=== PATIENT | female | born 1970 | race Caucasian/White ===

== ENCOUNTER → 2017-03-21 | Outpatient (CLI) | payer OTHER ==
[~2017-03-21] MED LIST: IOPAMIDOL (ISOVUE 370) 100 ML BTL IV ONE
== END ==
LOC: CIMAGING 09:03
PROVIDERS: ATTEND Surgery
CPT/HCPCS: 70498-PO; Q9967

== ENCOUNTER 2017-03-26 08:26 | Inpatient (IN) | payer OTHER ==
[2017-03-26] MEDS ORDERED: CLINDAMYCIN 900 MG/DEXTROSE 50 ML IV ONE (08:41)
[2017-03-26 09:09] LABS: % IMMATURE GRANULYOCYTES 0.3 % (0.0-1.1); ABSOLUTE IMMATURE GRANULOCYTES 0.03 10^3/uL (0.00-0.10); ADD DIFF? NO; ADD MORPH? NO; ADD SCAN? NO; ATYPICAL LYMPHOCYTE FLAG 0 (0-99); FRAGMENT RBC FLAG 0 (0-99); HEMATOCRIT 44.9 % (38.0-47.0); HEMOGLOBIN 15.5 g/dL (12.6-16.3); LEFT SHIFT FLG 0 (0-99); LIPEMIA HEMOLYSIS FLAG 90 (0-99); MEAN CELL HEMOGLOBIN 29.7 pg (27.9-34.1); MEAN CELL HEMOGLOBIN CONCENTR. 34.5 g/dL (32.4-36.7); MEAN PLATELET VOLUME 11.7 fL (8.7-11.7); PLATELET CLUMPS FLAG 0 (0-99); PLATELET COUNT 247 10^3/uL (150-400); RED BLOOD CELL COUNT 5.22 10^6/uL (4.18-5.33); RED CELL DISTRIBUTION WIDTH 12.8 % (11.5-15.2)
[2017-03-26] MEDS ORDERED: BUPIVACAINE 0.5% 30 ML SDV ONE (09:12)
--- NOTE | 2017-03-26 09:55 | PDHPUP ---
History & Physical Update H&P update statement: This history and physical update is based on an assessment of the patient which was completed after admission or registration (within 24 hours), but prior to the surgery/procedure. H&P update: H&P reviewed & patient examined, no change in patient's condition since H&P completed
[2017-03-26] MEDS ORDERED: fentaNYL 100 MCG/2 ML INJ ONE ×2 (10:05→11:02)
[2017-03-26] MEDS ORDERED: PROPOFOL/EMULSION 500 MG/50 ML BOTTLE IV ONE (10:06)
[2017-03-26] MEDS ORDERED: MIDAZOLAM 2 MG/2 ML VIAL ONE ×2 (10:06→10:54)
[2017-03-26 10:38] LABS: ANION GAP 15 mEq/L (8-16); CALCIUM 9.9 mg/dL (8.5-10.4); CARBON DIOXIDE 21 mEq/l (22-31); CHLORIDE 106 mEq/L (97-110); CREATININE 0.6 mg/dL (0.6-1.0); GLOMERULAR FILTRATION RATE > 60; GLUCOSE 114 mg/dL (70-100); POTASSIUM 4.6 mEq/L (3.5-5.2); SODIUM 142 mEq/L (134-144)
[2017-03-26] MEDS ORDERED: ONDANSETRON 4 MG/2 ML VIAL ONE (10:53)
[2017-03-26] MEDS ORDERED: LIDOCAINE 2% 5 ML SDV ONE (10:53)
[2017-03-26] MEDS ORDERED: SUGAMMADEX SODIUM 200 MG/2 ML VIAL IVP ONE (10:53)
[2017-03-26] MEDS ORDERED: RANITIDINE 50 MG/2 ML VIAL ONE (10:53)
[2017-03-26] MEDS ORDERED: METOCLOPRAMIDE 10 MG/2 ML VIAL ONE (10:53)
[2017-03-26] MEDS ORDERED: ROCURONIUM 50 MG/5 ML VIAL ONE (10:53)
[2017-03-26] MEDS ORDERED: DEXAMETHASONE 4 MG/ML VIAL ONE (10:53)
--- NOTE | 2017-03-26 11:06 | PDANEPAE ---
ANE Past Medical History - Cardiovascular History Hx Hypertension: No Hx Arrhythmias: No Hx Coronary Artery / Peripheral Vascular Disease: No Hx CHF / Valvular Disease: No Hx Palpitations: No Cardiovascular History Comment: CARDIAC STENT. [place] 02/2015. CP - OCCAS - Pulmonary History Hx COPD: No Hx Asthma/Reactive Airway Disease: No Hx Recent Upper Respiratory Infection: No Hx Oxygen in Use at Home: No Hx Sleep Apnea: No - Neurologic History Hx Cerebrovascular Accident: No Hx Seizures: No Hx Dementia: No Neurologic History Comment: PAST MIGRAINES - Endocrine History Hx Diabetes: No - Renal History Hx Renal Disorders: No - Liver History Hx Hepatic Disorders: No - Neurological & Psychiatric Hx Hx Neurological and Psychiatric Disorders: No - Cancer History Hx Cancer: No - Congenital Disorder History Hx Congenital Disorders: No - GI History Hx Gastrointestinal Disorders: No - Other Health History Other Health History: ESOPHILLIAC fASCIITIS - MIMICS SCLERODERMA - Chronic Pain History Chronic Pain: Yes (PAIN W/ESOPHILLIAC FASCIITIS) - Surgical History Prior Surgeries: ANGIOGRAPHY W/ STENTING X1. APPENDECTOMY. HYSTERECTOMY ANE Review of Systems - Exercise capacity METS (RN): 4 METS ANE Patient History - Allergies Allergies/Adverse Reactions: amoxicillin Allergy (Verified 03/22/17 11:40) hives/itchy - Home Medications Home Medications: Amitriptyline HCl 75 mg PO HS 03/22/17 [Last Taken Unknown] Aspirin [Aspirin 81mg (*)] 81 mg PO DAILY 03/22/17 [Last Taken Unknown] Carvedilol [Coreg (*)] 0.5 tab PO BID 03/22/17 [Last Taken 03/26/17 06:40] Clarithromycin [Biaxin (*)] 500 mg PO BID 03/22/17 [Last Taken Unknown] Clopidogrel Bisulfate [Plavix (*)] 75 mg PO DAILY 03/22/17 [Last Taken Unknown] oxyCODONE HCL/ACETAMINOPHEN [Percocet 7.5-325 mg Tablet] 1 each PO TID 03/22/17 [Last Taken 03/26/17 08:00] - NPO status NPO Since - Liquids (Date): 03/25/17 NPO Since - Liquids (Time): 20:30 NPO Since - Solids (Date): 03/25/17 NPO Since - Solids (Time): 21:00 - Smoking Hx Smoking Status: Current some day smoker - Family Anes Hx Family Hx Anesthesia Complications: NEG ANE Labs/Vital Signs - Labs Result Diagrams: 03/26/17 09:00 03/26/17 10:11 - Vital Signs Blood Pressure: 134/63 Heart Rate: 83 Respiratory Rate: 16 O2 Sat (%): 94 Height: 163.83 cm Weight: 61.235 kg ANE Physical Exam - Airway Neck exam: FROM Mallampati Score: Class 1 Mouth exam: poor dentition, dentures - Pulmonary Pulmonary: no respiratory distress, no rales or rhonchi, clear to auscultation, reduced air movement - Cardiovascular Cardiovascular: regular rate and rhythym, no murmur, rub, or gallop - ASA Status ASA Status: IV ANE Anesthesia Plan Anesthesia Plan: general endotracheal anesthesia Lines/Monitors: arterial line
[2017-03-26] MEDS ORDERED: PHENYLEPHRINE HCL 100 MCG/ML SYR ONE (11:18)
[2017-03-26] MEDS ORDERED: HEPARIN 10,000 UNIT/10 ML MDV ONE (11:18)
[2017-03-26] MEDS ORDERED: epHEDrine SULFATE 10 MG/ML SYR ONE (11:18)
[2017-03-26] MEDS ORDERED: fentaNYL 100 MCG/2 ML INJ IVP PRN (11:27)
[2017-03-26] MEDS ORDERED: METOCLOPRAMIDE 10 MG/2 ML VIAL IVP PRN (11:27)
[2017-03-26] MEDS ORDERED: DEXAMETHASONE 4 MG/ML VIAL IVP PRN (11:27)
[2017-03-26] MEDS ORDERED: LR 500 ML IV PRN (11:27)
[2017-03-26] MEDS ORDERED: NALOXONE HCL 0.4 MG/ML INJ IVP PRN (11:27)
[2017-03-26] MEDS ORDERED: PROMETHAZINE HCL 25 MG/ML INJ IVP PRN (11:27)
[2017-03-26] MEDS ORDERED: ONDANSETRON 4 MG/2 ML VIAL IVP PRN ×2 (11:27→12:00)
[2017-03-26] MEDS ORDERED: LABETALOL HCL 50 MG/10 ML SYR IVP PRN (11:27)
[2017-03-26] MEDS ORDERED: PROTAMINE SULFATE 50 MG/5 ML VIAL IVP ONE (11:35)
[2017-03-26] MEDS ORDERED: LABETALOL HCL 50 MG/10 ML SYR ONE (11:36)
[2017-03-26] MEDS ORDERED: HYDROmorphONE/DILAUDID 1 MG/ML SYR IVP PRN (12:00)
--- NOTE | 2017-03-26 12:00 | POSTOPPROG ---
Post Op Note Date of Operation: 03/26/17 Surgeon: Justin Eastman Cellular Biologist: Susie Jeffries Anesthesiologist: Yusra Mathis Anesthesia: GET(General Endotracheal) Pre-op Diagnosis: R carotid stenosis, R cervical LN biopsy Post-op Diagnosis: same Procedure: R CEA c patch closure and EEG monitoring Findings: small vessels with tight focal plaque Inf/Abcess present in the surg proc area at time of surgery?: No EBL: 50-100 Complications: none Specimen(s): plaque and LN to pathology
[2017-03-26] MEDS ORDERED: ENALAPRILAT DIHYDRATE 1.25 MG/ML VIAL IVP PRN (12:03)
--- NOTE | 2017-03-26 13:09 | POSTANESTH ---
Post Anesthetic Evaluation Cardiovascular Status: Normal, Stable Respiratory Status: Normal, Stable Level of Consciousness/Mental Status: Can Participate in Eval Pain Control: Adequate, Prn Tx Ordered Nausea/Vomiting Control: Adequate, Prn Tx Ordered Complications Possibly Related to Anesthesia: None Noted
[2017-03-26] MEDS: OXYCODONE/APAP 5/325 TAB PO PRN ×2 (14:50→20:10)
[2017-03-26] MEDS: D5W 1/2 NS 1,000 ML IV SCH ×2 (18:04→23:12)
[2017-03-26] MEDS ORDERED: AMITRIPTYLINE HCL 25 MG TAB PO SCH (21:00)
[2017-03-26] MEDS ORDERED: AMITRIPTYLINE HCL 75 MG PO SCH (21:00)
[2017-03-26] MEDS: CARVEDILOL 3.125 MG TAB PO SCH (21:13)
[2017-03-26] MEDS: CLARITHROMYCIN 500 MG TAB PO SCH (21:13)
[2017-03-27] MEDS: OXYCODONE/APAP 5/325 TAB PO PRN ×2 (02:02→07:09)
--- NOTE | 2017-03-27 03:09 | GCON ---
[f rep st] CONSULTATION RESTAURANT RECRUITER CONSULTATION The patient was examined postoperatively after receiving a right carotid endarterectomy. The patien jesús is a very pleasant 46-year-old white female with a past medical history of eosinophilic fasciitis. She was examined after receiving a right carotid endarterectomy. I discussed with the patient, ruth estrada states overall she is doing quite well. Her neck pain is tolerable. She denies any chest pain, p leuritic-type chest pain or angina equivalent. No fever, no night sweats. No cough or production o f sputum. She denies any dyspnea. Overall, she is feeling quite well. PAST MEDICAL HISTORY: Significant for eosinophilic fasciitis. ALLERGIES: Amoxicillin. SOCIAL HISTORY: Previous smoker, quit recently. No significant alcohol use. She is , has e xcellent family support. She has lived in [place] most of her life. CURRENT MEDICATIONS: Include Elavil, aspirin, Coreg, Biaxin, clindamycin, clopidogrel, enalapril, e noxaparin, hydromorphone, ondansetron. PHYSICAL EXAM: VITAL SIGNS: Blood pressure 99/55, pulse 71, respirations 20, temperature 36.6, oxy gen saturation 94% on room air. GENERAL: She is a well-developed, well-nourished, 46-year-old whit e female who is resting comfortably in no acute distress. HEENT: Eyes are PERRLA, EOMI. Throat sh ows no erythema or tonsillar hypertrophy. NECK: Has a bandage on the right side. HEART: Regular rate and rhythm without murmurs, rubs, gallops. LUNGS: Clear to auscultation without wheeze or rho nchi. ABDOMEN: Soft, nontender. Bowel sounds are present in all 4 quadrants. EXTREMITIES: No cl ubbing, cyanosis, or edema. LABORATORIES: White count 11, hemoglobin 15, hematocrit 44, platelet count is 247. Sodium 142, pot assium 4.6, chloride 106, CO2 is 21, BUN is 9, creatinine 0.6, glucose is 114. IMPRESSION: 1. Status post carotid endarterectomy. 2. History of eosinophilic fasciitis. RECOMMENDATIONS: 1. Adequate pain control. 2. DVT and PE prophylaxis. 3. Stress ulcer prophylaxis. 4. Adequate nutrition. 5. Anticipate patient to be discharged home soon. /[id number]/MODL
[2017-03-27 06:11] LABS: HEMATOCRIT 36.8 % (38.0-47.0); HEMOGLOBIN 12.3 g/dL (12.6-16.3)
[2017-03-27 06:27] LABS: ANION GAP 9 mEq/L (8-16); CALCIUM 9.2 mg/dL (8.5-10.4); CARBON DIOXIDE 21 mEq/l (22-31); CHLORIDE 110 mEq/L (97-110); CREATININE 0.6 mg/dL (0.6-1.0); GLOMERULAR FILTRATION RATE > 60; GLUCOSE 217 mg/dL (70-100); SODIUM 140 mEq/L (134-144)
--- NOTE | 2017-03-27 06:30 | GOP ---
[f rep st] OPERATIVE REPORT DATE OF OPERATION: 03/26/2017 SURGEON: Justin Eastman MD COMPLAINT INSPECTOR: Susie Jeffries, PAC ANESTHESIA: General endotracheal anesthesia. ANESTHESIOLOGIST: Dr. Mathis. PREOPERATIVE DIAGNOSIS: Critical right carotid stenosis. POSTOPERATIVE DIAGNOSIS: Critical right carotid stenosis. PROCEDURE PERFORMED: 1. Right carotid endarterectomy with EEG monitoring. 2. Cervical node biopsy. FINDINGS: The patient was found to have a very tight but short 1 cm stenosis at the origin of her r ight internal carotid artery. She had adequate backflow and no EEG changes during the procedure, an d she awoke neurologically intact. DESCRIPTION OF PROCEDURE: Patient was taken to the operating room, where she received satisfactory general endotracheal anesthesia by Dr. Mathis. She had been systemically heparinized prior to induc tion of anesthesia. She was placed in supine position, prepped and draped in usual sterile fashion. An incision was made along the anterior border of the sternocleidomastoid muscle and dissection ca rried down through the platysma and subcutaneous tissue and then through the cervical fascia. The f acial vein was doubly ligated and divided, exposing the carotid bifurcation, which was then dissecte d free. Common carotid, internal carotid, and external carotid arteries were all encircled with ves emily loops, as was the inferior thyroid artery. She also had quite small vessels. After adequate co ntrol was achieved additional heparin was given, and after adequate circulation time the vessels wer e crossclamped with the vessel loops. Arteriotomy was made in the common carotid artery and extende d up through the tight origin of the internal carotid into more normal internal carotid artery. Goo d backflow was present. We elected not to shunt this since the procedure was quite quick. Judiciou s endarterectomy was then done, freeing the plaque at the origin of the internal carotid artery. A good feathered end was obtained; however, the end was tacked down also with a 7-0 Prolene suture. A ll debris was removed through the vessel and all vessels were flushed. A Dacron patch was then plac ed on the artery and secured in place with a Hemashield 7 suture. Flow was first established throug h the external carotid and then through the internal carotid artery. The suture line was repaired i n 1 place with an additional suture, and the suture line was otherwise hemostatic. Heparin was then reversed with protamine and the wound was sprayed with some topical thrombin. Hemostasis appeared to be adequate despite the patient's Plavix and aspirin. Cervical fascia was closed with a running 3-0 Vicryl suture. Platysma and subcu were closed with running 3-0 Vicryl suture and the skin with 4-0 Monocryl subcuticular stitch. A large cervical node with bifurcation was dissected free and removed and sent with the pathology. It appeared to be relatively benign looking. Wound was dressed. She tolerated the procedure well. She awoke neurologically intact and was taken to the recovery room in good condition. There were n o complications. /[id number]/MODL
[2017-03-27 08:09] VITALS: TEMP 98.2
[2017-03-27] MEDS: CARVEDILOL 3.125 MG TAB PO SCH (08:17)
[2017-03-27] MEDS: CLARITHROMYCIN 500 MG TAB PO SCH (08:18)
[2017-03-27] MEDS ORDERED: ASPIRIN 81 MG CHEWABLE TAB PO SCH (09:00)
[2017-03-27] MEDS ORDERED: CLOPIDOGREL BISULFATE 75 MG TAB PO SCH (09:00)
--- NOTE | 2017-03-27 09:19 | PDINTPN ---
Admission Liaison Progress Note Assessment/Plan: Assessment: * Status post carotid endarterectomy * Pain tolerable * Respiratory-stable * History of eosinophilic fasciitis Plan: Likely home today Subjective: Resting comfortably. Pain is tolerable. Denies any dyspnea. Good appetite Objective: Vital Signs Temp Pulse Resp BP Pulse Ox 36.8 C 92 19 100/57 L 90 L 03/27/17 08:00 03/27/17 08:00 03/27/17 08:00 03/27/17 08:00 03/27/17 08:00 Laboratory Results 03/27/17 06:01 03/27/17 06:01 03/26/17 03/27/17 03/28/17 05:59 05:59 05:59 Intake Total 2923 Output Total 250 Balance 2673 Physical Exam - Physical Exam General Appearance: alert, no apparent distress EENT: PERRL/EOMI, normal ENT inspection Neck: full range of motion, other (Bandaged), No non-tender Respiratory: chest non-tender, lungs clear, normal breath sounds Cardiac/Chest: normal peripheral pulses, regular rate, rhythm Peripheral Pulses: 2+: carotid (R), carotid (L), femoral (R), femoral (L), dorsalis-pedis (R), dorsalis-pedis (L) Abdomen: normal bowel sounds, non-tender, soft Pelvic Exam: deferred Rectal: deferred Skin: normal color, warm/dry Extremities: normal range of motion, non-tender, normal inspection, normal capillary refill ICD10 Worksheet Patient Problems: Problems Problem Status Onset Carotid artery disease Acute - ICD10 Problem Qualifiers (1) Carotid artery disease Qualifiers: Laterality: L
--- NOTE | 2017-03-27 09:22 | SOAPPROG ---
SOAP Progress Note Assessment/Plan: Assessment/Plan: 46 Y F s/p R CEA. POD#1. BP stable. Neuro exam intact. Pain controlled. Doing well. D/c to home with early outpatient f/u. Limitations discussed. Will also need L CEA eventually. Resume plavix today. Rx: percocet. S: pain controlled. tolerating diet. no complaints. O: alert, nad inc cdi, min swelling ctab rrr abd soft neuro grossly intact. 03/27/17 09:20 Objective: Vital Signs Temp Pulse Resp BP Pulse Ox 36.8 C 92 19 100/57 L 90 L 03/27/17 08:00 03/27/17 08:00 03/27/17 08:00 03/27/17 08:00 03/27/17 08:00 Laboratory Results 03/27/17 06:01 03/27/17 06:01 03/26/17 03/27/17 03/28/17 05:59 05:59 05:59 Intake Total 4323 Output Total 250 Balance 2673 ICD10 Worksheet Patient Problems: Problems Problem Status Onset Carotid artery disease Acute
[2017-03-27 09:39] VITALS: BP 102/67; PULSE 94; RESP 14; O2SAT 92
[2017-03-28] MEDS ORDERED: ENOXAPARIN 40 MG/0.4 ML SYR SC SCH (09:00)
== END 2017-03-27 09:59 | disposition home or self-care (01) | DRG 39 ==
LOC: F3N 08:26 → F2N 13:13
PROVIDERS: ADMIT Surgery; ATTEND Surgery
PROC: 03CK0ZZ Extirpation of Matter from Right Internal Carotid Artery, Open Approach (ICD-10-PCS; principal; 2017-03-26 11:00)
PROC: 07B10ZX Excision of Right Neck Lymphatic, Open Approach, Diagnostic (ICD-10-PCS; principal; 2017-03-26 11:00)
DX: I65.23 Occlusion and stenosis of bilateral carotid arteries (principal); I25.2 Old myocardial infarction; Z95.5 Presence of coronary angioplasty implant and graft; Z87.891 Personal history of nicotine dependence
CPT/HCPCS: C1768; J1100; J1644; J2250; J2370; J2405; J2704; J2720; J2765; J2780; J3010

== ENCOUNTER 2017-04-16 09:13 | Inpatient (IN) | payer OTHER ==
--- NOTE | 2017-04-15 22:22 | GHP ---
[f rep st] PREOP HISTORY AND PHYSICAL DATE OF ADMISSION: 04/16/2017 HISTORY OF PRESENT ILLNESS: The patient is a 46-year-old female, who was initially found to have bi lateral carotid bruits. This prompted an ultrasound which showed critical carotid stenoses of both sides. Since then, she had a neck CT angiogram which showed moderate to severe bilateral stenosis o f the origin of both internal carotid arteries measuring 65%-75%. Upon reviewing images, it appeare d that the right side was slightly worse than the left and so she underwent a right carotid endarter ectomy on March 26, 2017. The procedure was uncomplicated and her postoperative course has been une ventful. She now presents for carotid artery endarterectomy of the left side. She denies any strok e-like symptoms. Risks and options have been discussed including, but not limited to, bleeding, inf ection, injury to a nerve, damage to surrounding structures, stroke and other problems, and she requ ests to proceed. PAST MEDICAL HISTORY: Includes myocardial infarction in February of 2015 with coronary stents, eosinoph ilic fasciitis, possible scleroderma. PAST SURGICAL HISTORY: Right carotid endarterectomy as described above. MEDICATIONS: Include oxycodone, omeprazole, Plavix, carvedilol, aspirin, amitriptyline. ALLERGIES: Amoxicillin results in hives and itchiness. SOCIAL HISTORY: Patient recently quit smoking. REVIEW OF SYSTEMS: Please see HPI. PHYSICAL EXAMINATION: GENERAL: Reveals a 46-year-old female, alert and oriented x3 and in no acute distress. HEENT: Well-healed right neck incision. Positive for left-sided bruit. Pupils equal a nd round. Tongue midline. No scleral icterus. CHEST: Clear to auscultation bilaterally. CARDIAC : Regular rate and rhythm. ABDOMEN: Soft, nontender. EXTREMITIES: Warm and dry. NEURO: Grossl y intact. IMPRESSIONS: A 46-year-old female with a cardiac history, status post right carotid endarterectomy, now still with critical left side carotid stenosis. PLAN: Plan is to proceed with a left carotid endarterectomy. She will continue her Plavix. Again risks and options have been discussed. She requests to proceed. /[id number]/MODL
[2017-04-16] MEDS ORDERED: ceFAZolin 2 GM/DEXTROSE 100 ML IV ONE (09:32)
[2017-04-16] MEDS ORDERED: LR 1,000 ML IV ONE (09:33)
[2017-04-16] MEDS ORDERED: LIDOCAINE 1% 2 ML INJ ID PRN (09:33)
[2017-04-16] MEDS ORDERED: MIDAZOLAM 2 MG/2 ML VIAL IVP ONE (10:16)
[2017-04-16] MEDS ORDERED: oxyCODONE IR 5 MG TAB PO ONE (10:17)
--- NOTE | 2017-04-16 10:21 | PDANEPAE ---
ANE History of Present Illness 46 year old female presents for carotid endarterectomy. Patient recently had her right carotid done, now presents for left side. Patient also with PMHx of CAD ([place] in 2014 with cardiac stent), heavy smoker, GERD and Esophilliac fascitis. ANE Past Medical History - Cardiovascular History Hx Hypertension: No Hx Arrhythmias: No Hx Chest Pain: No Hx Coronary Artery / Peripheral Vascular Disease: No Hx CHF / Valvular Disease: No Hx Palpitations: No Cardiovascular History Comment: CARDIAC STENT. [place] 02/2015. on Plavix and betablocker since stent placed. - Pulmonary History Hx COPD: No Hx Asthma/Reactive Airway Disease: No Hx Recent Upper Respiratory Infection: No Hx Oxygen in Use at Home: No Hx Sleep Apnea: No Sleep Apnea Screening Result - Last Documented: Negative - Neurologic History Hx Cerebrovascular Accident: No Hx Seizures: No Hx Dementia: No Neurologic History Comment: PAST MIGRAINES - Endocrine History Hx Diabetes: No Hyperthyroid: No Obesity: no - Renal History Hx Renal Disorders: No - Liver History Hx Hepatic Disorders: No - Neurological & Psychiatric Hx Hx Neurological and Psychiatric Disorders: No - Cancer History Hx Cancer: No - Congenital Disorder History Hx Congenital Disorders: No - GI History GERD: mild Hx Gastrointestinal Disorders: No Gastrointestinal History Comment: GERD - Other Health History Other Health History: On Plavix since heart stenting 03-02-15;. ESOPHILLIAC fASCITIS - MIMICS SCLERODERMA- pain hips down to feet. Sm bruise R neck ( carotid 03/26/17). full dentures - Chronic Pain History Chronic Pain: Yes (PAIN W/ESOPHILLIAC FASCIITIS) - Surgical History Prior Surgeries: R carotid endarterectomy 03-26-17. ANGIOGRAPHY W/ STENTING X1. APPENDECTOMY. HYSTERECTOMY ANE Review of Systems - Exercise capacity Exercise capacity: >=4 METS METS (RN): 4 METS ANE Patient History - Allergies Allergies/Adverse Reactions: amoxicillin Allergy (Verified 04/15/17 16:26) hives/itchy - Home Medications Home medications: home medication list seen and reviewed Home Medications: Aspirin [Aspirin 81mg (*)] 81 mg PO DAILY 03/22/17 [Last Taken 04/16/17] Carvedilol [Coreg (*)] 0.5 tab PO BID 03/22/17 [Last Taken 04/16/17] Clopidogrel Bisulfate [Plavix (*)] 75 mg PO DAILY 03/22/17 [Last Taken 04/16/17] AMITRIPTYLINE HCL [Amitriptyline 100 mg] 100 mg PO HS 04/15/17 [Last Taken 04/15 22:00] Herbals/Supplements -Info Only 1 ea PO DAILY 04/15/17 [Last Taken Unknown] Omeprazole [Prilosec 20 mg] 20 mg PO DAILY 04/15/17 [Last Taken 04/15/17] oxyCODONE HCL/ACETAMINOPHEN [Percocet 7.5-325 mg Tablet] 1 each PO TID 04/15/17 [Last Taken 04/15/17 20:00] - NPO status NPO Status: no food or drink >8 hours NPO Since - Liquids (Date): 04/15/17 NPO Since - Liquids (Time): 21:30 NPO Since - Solids (Date): 04/15/17 NPO Since - Solids (Time): 17:30 - Anes Hx Anes Hx: no prior problems - Smoking Hx Smoking Status: Heavy smoker - Family Anes Hx Family Anes Hx: neg - N/A Family Hx Anesthesia Complications: NEG ANE Labs/Vital Signs - Vital Signs Vital Signs: reviewed preoperatively; see RN documention for details Blood Pressure: 110/76 Heart Rate: 87 Respiratory Rate: 16 O2 Sat (%): 95 Height: 163.83 cm Weight: 61.689 kg ANE Physical Exam - Airway Neck exam: FROM Mallampati Score: Class 2 Mouth exam: dentures - Pulmonary Pulmonary: no respiratory distress - Cardiovascular Cardiovascular: regular rate and rhythym - ASA Status ASA Status: III ANE Anesthesia Plan Anesthesia Plan: general endotracheal anesthesia Lines/Monitors: arterial line Total IV Anesthesia: No
[2017-04-16] MEDS ORDERED: BACITRACIN ZINC 14.2 GM OINTTUBE TP ONE (10:41)
[2017-04-16] MEDS ORDERED: THROMBIN (BOVINE) 20,000 UNIT SPRAY TP ONE (10:42)
[2017-04-16] MEDS ORDERED: BUPIVACAINE 0.5% 30 ML SDV ONE (10:42)
[2017-04-16] MEDS ORDERED: fentaNYL 100 MCG/2 ML INJ ONE ×2 (11:29→13:04)
[2017-04-16] MEDS ORDERED: PROPOFOL 200 MG/20 ML VIAL ONE (11:29)
[2017-04-16] MEDS ORDERED: REMIFENTANIL HCL 1 MG VIAL ONE (11:30)
[2017-04-16] MEDS ORDERED: PROTAMINE SULFATE 50 MG/5 ML VIAL IVP ONE (11:37)
[2017-04-16] MEDS ORDERED: PAPAVERINE HCL 60 MG/2 ML SDV ONE (11:38)
[2017-04-16] MEDS ORDERED: DEXAMETHASONE 4 MG/ML VIAL ONE (12:24)
[2017-04-16] MEDS ORDERED: fentaNYL 100 MCG/2 ML INJ IVP PRN (13:17)
[2017-04-16] MEDS ORDERED: NALOXONE HCL 0.4 MG/ML INJ IVP PRN (13:17)
[2017-04-16] MEDS ORDERED: LABETALOL HCL 50 MG/10 ML SYR IVP PRN (13:17)
[2017-04-16] MEDS ORDERED: ONDANSETRON 4 MG/2 ML VIAL IVP PRN ×2 (13:17→13:53)
[2017-04-16] MEDS ORDERED: OXYCODONE/APAP 5/325 TAB PO PRN (13:17)
[2017-04-16] MEDS ORDERED: LIDOCAINE 2% 5 ML SDV ONE (13:19)
[2017-04-16] MEDS ORDERED: HEPARIN 10,000 UNIT/10 ML MDV ONE (13:19)
[2017-04-16] MEDS ORDERED: ONDANSETRON 4 MG/2 ML VIAL ONE (13:19)
[2017-04-16] MEDS ORDERED: SUGAMMADEX SODIUM 200 MG/2 ML VIAL IVP ONE (13:19)
[2017-04-16] MEDS ORDERED: ROCURONIUM 50 MG/5 ML VIAL ONE ×2 (13:20)
[2017-04-16] MEDS ORDERED: D5W 1/2 NS 1,000 ML IV SCH (14:00)
--- NOTE | 2017-04-16 14:04 | POSTOPPROG ---
Post Op Note Date of Operation: 04/16/17 Surgeon: Justin Eastman Pediatric Np: Susie Jeffries Anesthesiologist: Abdullahi Baldwin Anesthesia: GET(General Endotracheal) Pre-op Diagnosis: L critical carotid stenosis Post-op Diagnosis: same Procedure: L CEA c EEG monitoring and patch closure Findings: tight focal plaque, no eeg changes Inf/Abcess present in the surg proc area at time of surgery?: No EBL: 50-100 Complications: none
[2017-04-16] MEDS ORDERED: HYDROmorphONE/DILAUDID 1 MG/ML SYR ONE (15:06)
[2017-04-16] MEDS: HYDROmorphONE/DILAUDID 1 MG/ML SYR IVP PRN ×4 (15:09→16:11)
[2017-04-16] MEDS ORDERED: NON-FORMULARY NEW DRUG (Oxycodone Hcl/Acetaminophen [Percocet 7.5-325 Mg Tablet] 1 EACH) PO SCH (16:00)
--- NOTE | 2017-04-16 16:44 | POSTANESTH ---
Post Anesthetic Evaluation Cardiovascular Status: Normal, Stable Respiratory Status: Normal, Stable, Requires Airway Assist Level of Consciousness/Mental Status: Moderately Sleepy Pain Control: Adequate, Prn Tx Ordered Nausea/Vomiting Control: Adequate, Prn Tx Ordered Complications Possibly Related to Anesthesia: None Noted
[2017-04-16] MEDS: OXYCODONE/APAP 5/325 TAB PO SCH ×2 (17:14→21:16)
--- NOTE | 2017-04-16 17:26 | SOAPPROG ---
SOAP Progress Note Assessment/Plan: Assessment: POSTOP DOING WELL/WOUND OKAY/NEURO INTACT Plan: HOME IN THE A.M. 04/16/17 17:25 Objective: Vital Signs Temp Pulse Resp BP Pulse Ox 36.5 C 88 16 97/57 L 95 04/16/17 14:57 04/16/17 14:57 04/16/17 15:16 04/16/17 15:16 04/16/17 15:16 04/15/17 04/16/17 04/17/17 05:59 05:59 05:59 Intake Total 1500 Output Total 10 Balance 1490 ICD10 Worksheet Patient Problems: Problems Problem Status Onset Carotid artery disease Acute
[2017-04-16] MEDS ORDERED: AMITRIPTYLINE HCL 100 MG TAB PO SCH (21:00)
[2017-04-16] MEDS: CARVEDILOL 3.125 MG TAB PO SCH (21:16)
[2017-04-16] MEDS: oxyCODONE IR 5 MG TAB PO PRN (21:21)
[2017-04-17] MEDS: oxyCODONE IR 5 MG TAB PO PRN ×2 (01:28→06:46)
[2017-04-17 04:30] VITALS: TEMP 97.9
[2017-04-17] MEDS: OXYCODONE/APAP 5/325 TAB PO SCH (08:18)
[2017-04-17] MEDS: CARVEDILOL 3.125 MG TAB PO SCH (08:19)
[2017-04-17] MEDS ORDERED: CLOPIDOGREL BISULFATE 75 MG TAB PO SCH (09:00)
[2017-04-17] MEDS ORDERED: NON-FORMULARY NEW DRUG (Omeprazole [Prilosec 20 Mg] 20 MG) PO SCH (09:00)
[2017-04-17] MEDS ORDERED: ASPIRIN 81 MG CHEWABLE TAB PO SCH (09:00)
[2017-04-17] MEDS ORDERED: PANTOPRAZOLE SODIUM 40 MG TAB PO SCH (09:00)
--- NOTE | 2017-04-17 09:59 | SOAPPROG ---
SOHENNY Progress Note Assessment/Plan: Assessment: POSTOP DOING WELL/WOUND OKAY/NEURO INTACT Plan: HOME IN THE A.M. 04/16/17 17:25 04/17/17 09:57 POSTOP LEFT CEA/ DOING GREAT/ AFEBRILE/ NEURO INTACT/ WOUND OK/ HOME TODAY ONLY CONCERN WAS INADEQUATE PAIN MEDS FOR HER CHRONIC PAIN SITUATION Objective: Vital Signs Temp Pulse Resp BP Pulse Ox 36.6 C 80 16 98/57 L 97 04/17/17 08:00 04/17/17 08:19 04/17/17 08:00 04/17/17 08:19 04/17/17 08:00 04/16/17 04/17/17 04/18/17 05:59 05:59 05:59 Intake Total 3150 Output Total 10 Balance 3140 ICD10 Worksheet Patient Problems: Problems Problem Status Onset Carotid artery disease Acute
[2017-04-17 10:17] VITALS: BP 101/57; PULSE 79; RESP 12; O2SAT 95
[2017-04-18] MEDS ORDERED: ENOXAPARIN 40 MG/0.4 ML SYR SC SCH (09:00)
== END 2017-04-17 11:16 | disposition home or self-care (01) | DRG 39 ==
LOC: F2W 09:13 → F2N 15:26
PROVIDERS: ADMIT Surgery; ATTEND Surgery
PROC: 03CL0ZZ Extirpation of Matter from Left Internal Carotid Artery, Open Approach (ICD-10-PCS; principal; 2017-04-16 11:15)
DX: I65.22 Occlusion and stenosis of left carotid artery (principal); I25.10 Atherosclerotic heart disease of native coronary artery without angina pectoris; I25.2 Old myocardial infarction; Z95.5 Presence of coronary angioplasty implant and graft; Z87.891 Personal history of nicotine dependence; K21.9 Gastro-esophageal reflux disease without esophagitis; Z79.02 Long term (current) use of antithrombotics/antiplatelets
CPT/HCPCS: C1768; J0690; J1100; J1170; J1644; J2250; J2405; J2440; J2704; J2720; J3010